=== PATIENT | female | born 1950 | race Caucasian/White ===

== ENCOUNTER → 2017-07-09 | Outpatient (CLI) | payer OTHER | LOC: FIMAGING 10:26 | PROVIDERS: ATTEND Family Medicine | DX: Z12.31 Encounter for screening mammogram for malignant neoplasm of breast (principal); Z80.3 Family history of malignant neoplasm of breast | CPT/HCPCS: G0202 ==

== ENCOUNTER 2017-11-16 04:35 | Emergency (ER) | payer OTHER, MEDICARE ==
--- NOTE | 2017-11-16 05:02 | CPEKG ---
Heart Rate: 84 RR Interval: 714 P-R Interval: 164 QRSD Interval: 144 QT Interval: 404 QTC Interval: 478 P [place]: 32 QRS [place]: 7 T Wave [place]: 37 EKG Severity - ABNORMAL ECG - EKG Impression: SINUS RHYTHM EKG Impression: RIGHT BUNDLE BRANCH BLOCK Electronically Signed By: Daysi Downs 17-Nov-2017 06:04:42
[2017-11-16] MEDS ORDERED: ASPIRIN 325 MG TAB PO ONE (05:08)
[2017-11-16 05:10] LABS: PLATELET COUNT 188 10^3/uL (150-400)
[2017-11-16] MEDS ORDERED: ASPIRIN 81 MG CHEWABLE TAB ONE (05:11)
--- NOTE | 2017-11-16 05:11 | EDPHY ---
H & P Stated Complaint: CP Source: Patient Exam Limitations: No limitations - Personal History Current Tetanus/Diphtheria Vaccine: Unsure Current Tetanus Diphtheria and Acellular Pertussis (TDAP): Unsure Tetanus Vaccine Date: unknown - Medical/Surgical History Hx Asthma: No Hx Chronic Respiratory Disease: No Hx Diabetes: No Hx Cardiac Disease: Yes Hx Renal Disease: No Hx Cirrhosis: No Hx Alcoholism: No Hx HIV/AIDS: No Hx Splenectomy or Spleen Trauma: No Other PMH: PMH- HLD, HYPOTHYROID. PSH- RUPTURED ECTOPIC, HYSTERECTOMY, APPY - Social History Smoking Status: Never smoked HPI/ROS: HPI The patient presents with chest pain and back pain which awoke her from sleep at 4:11 a.m. this morning. The patient describes the pain as sharp and clipping , starting in her left chest and radiating across her back. When she 1st experienced the pain she got up out of bed and drink some water. She noticed she was diaphoretic after this. She felt that her heart rate was fast about 120. She denies any shortness of breath, nausea or vomiting. She has no prior history of similar. She went to bed feeling well.. REVIEW OF SYSTEMS Constitutional: No fever, no chills. Eyes: No discharge. ENT: No sore throat. Cardiovascular: No chest pain, no palpitations. Respiratory: No cough, no shortness of breath. Gastrointestinal: No abdominal pain, no vomiting. Genitourinary: No hematuria. Musculoskeletal: No back pain. Skin: No rashes. Neurological: No headache. PMHx: Hypertension, hypothyroidism, history of right bundle-branch block with left anterior fascicular block, history of PACs Soc Hx: Lives at home with family PHYSICAL General Appearance: Alert, no distress Eyes: Pupils equal and round no pallor or injection ENT, Mouth: Mucous membranes moist Respiratory: There are no retractions, lungs are clear to auscultation Cardiovascular: Regular rate and rhythm Gastrointestinal: Abdomen is soft and non-tender, no masses, bowel sounds normal Neurological: A&O, moves all extremities Skin: Warm and dry, no rashes Musculoskeletal: Neck is supple non tender Extremities: symmetrical, full range of motion Psychiatric: Patient is oriented X 3, there is no agitation (Riguzzi,Daysi) Constitutional: Initial Vital Signs Temperature (C) 36.6 C 11/16/17 04:38 Heart Rate 77 02/05/18 04:38 Respiratory Rate 16 11/16/17 04:38 Blood Pressure 190/92 H 11/16/17 04:38 O2 Sat (%) 94 11/16/17 04:38 O2 Delivery Mode Room Air Allergies/Adverse Reactions: nitrofurantoin [From Macrobid] Allergy (Verified 05/11/16 02:01) nitrofurantoin macrocrystalline [From Macrobid] Allergy (Verified 05/11/16 02:01 ) BENZOPROXIDE Allergy (Uncoded 05/11/16 02:01) Home Medications: Medication Instructions Recorded Levothyroxine Sodium [Synthroid] 0.125 mcg PO 10/22/11 Amoxicillin/Clavulanate Pot 875 mg PO BID #20 tab 05/11/16 [Augmentin 875 MG TAB (*)] Hydrocodone/Acetaminophen [Vicodin 1 each PO Q4-6PRN PRN #20 tablet 05/11/16 5-300 mg Tablet] Lisinopril 05/11/16 Medical Decision Making - Diagnostics Imaging: I viewed and interpreted images myself - Diagnostics EKG Interpretation: EKG: Complete interpretation has been separately recorded in the [facility] archive. Summary impression: Sinus rhythm with right bundle-branch block and left anterior fascicular block. (Daysi Downs) Imaging Results: Imaging Impressions Chest X-Ray 11/16/17 05:05 Impression: No focal pneumonia. Chest x-ray two view shows no cardiomegaly, no effusion, no infiltrate, interpreted by me, radiology interpretation is pending. (Daysi Downs) ED Course/Re-evaluation: 730: The patient is signed out to me at change of shift. Per report, the patient is awaiting repeat troponin and EKG at 8:15 a.m.. Went discussed this plan with the patient. I answered all her questions. This time she had no chest pain. She is sitting comfortably in the bed. Her exam is unremarkable. 820: Sinus rhythm at 67. Right bundle branch block. This was present on her previous EKG. Her EKG is unchanged. Patient's repeat troponin was 0.017. I discussed the results with the patient. She is given warnings prior to leaving. She will return with worsening symptoms. (Melissa Ramirez) Differential Diagnosis: 67-year-old female with hypertension and hypothyroidism presents from home with chest and back pain which began about 1 hr prior to presentation. On arrival here, she is hypertensive, remainder of exam is unremarkable. Differential diagnosis includes ACS, aortic dissection, pneumonia, pneumothorax , pulmonary embolism, GERD, musculoskeletal pain. In the emergency department, patient received aspirin 324 mg. She had improvement in her pain. Chest x-ray was normal and EKG was unremarkable for any ischemic change, she does have a known right bundle branch block with left anterior fascicular block. Labs were unremarkable including troponin. Heart score calculated at 3. I have offered her admission to the hospital, however she declines. We will do a 4 hr serial troponin with repeat EKG. If this is normal she can be discharged to follow up with Cardiology. If this is abnormal, she should be admitted to the hospitalist service. She is in agreement with this plan. At 7:15 a.m., the case will be signed out to the oncoming provider Dr. Ramirez. (Daysi Downs) - Data Points Laboratory Results: Laboratory Results 11/16/17 04:55 11/16/17 04:55 11/16/17 11/16/17 11/16/17 08:14 04:55 04:55 WBC RBC Hgb Hct MCV MCH MCHC RDW Plt Count MPV Neut % (Auto) Lymph % (Auto) [place] % (Auto) Eos % (Auto) Baso % (Auto) Nucleat RBC Rel Count Absolute Neuts (auto) Absolute Lymphs (auto) Absolute Monos (auto) Absolute Eos (auto) Absolute Basos (auto) Absolute Nucleated RBC Immature Gran % Immature Gran # D-Dimer 0.32 ug/mLFEU ug/mLFEU (0.00-0.50) Sodium 147 mEq/L H mEq/L (135-145) Potassium 3.7 mEq/L mEq/L (3.5-5.2) Chloride 107 mEq/L mEq/L (97-110) Carbon Dioxide 23 mEq/l mEq/l (22-31) Anion Gap 17 mEq/L H mEq/L (8-16) BUN 13 mg/dL mg/dL (7-23) Creatinine 0.8 mg/dL mg/dL (0.6-1.0) Estimated GFR > 60 Glucose 120 mg/dL H mg/dL (70-100) Calcium 9.4 mg/dL mg/dL (8.5-10.4) Troponin I 0.017 ng/mL ng/mL < 0.012 ng/mL ng/mL (0.000-0.034) (0.000-0.034) TSH 2.240 uIU/mL uIU/mL (0.465-4.680) 11/16/17 04:55 WBC 6.70 10^3/uL 10^3/uL (3.80-9.50) RBC 5.61 10^6/uL H 10^6/uL (4.18-5.33) Hgb 17.0 g/dL H g/dL (12.6-16.3) Hct 49.1 % H % (38.0-47.0) MCV 87.5 fL fL (81.5-99.8) MCH 30.3 pg pg (27.9-34.1) MCHC 34.6 g/dL g/dL (32.4-36.7) RDW 13.0 % % (11.5-15.2) Plt Count 188 10^3/uL 10^3/uL (150-400) MPV 9.8 fL fL (8.7-11.7) Neut % (Auto) 46.2 % % (39.3-74.2) Lymph % (Auto) 43.0 % % (15.0-45.0) [place] % (Auto) 6.1 % % (4.5-13.0) Eos % (Auto) 3.3 % % (0.6-7.6) Baso % (Auto) 1.0 % % (0.3-1.7) Nucleat RBC Rel Count 0.0 % % (0.0-0.2) Absolute Neuts (auto) 3.09 10^3/uL 10^3/uL (1.70-6.50) Absolute Lymphs (auto) 2.88 10^3/uL 10^3/uL (1.00-3.00) Absolute Monos (auto) 0.41 10^3/uL 10^3/uL (0.30-0.80) Absolute Eos (auto) 0.22 10^3/uL 10^3/uL (0.03-0.40) Absolute Basos (auto) 0.07 10^3/uL 10^3/uL (0.02-0.10) Absolute Nucleated RBC 0.00 10^3/uL 10^3/uL (0-0.01) Immature Gran % 0.4 % % (0.0-1.1) Immature Gran # 0.03 10^3/uL 10^3/uL (0.00-0.10) D-Dimer Sodium Potassium Chloride Carbon Dioxide Anion Gap BUN Creatinine Estimated GFR Glucose Calcium Troponin I TSH Medications Given: Discontinued Medications Aspirin (Aspirin) 325 mg PO EDNOW ONE Stop: 11/16/17 05:09 Last Admin: 11/16/17 05:12 Dose: 325 mg Departure - Departure Disposition: Home, Routine, Self-Care Clinical Impression: Chest pain Qualifiers: Chest pain type: other chest pain Qualified Code(s): R07.89 - Other chest pain ; R07.8 - Other chest pain Condition: Good Instructions: Chest Pain (ED) Additional Instructions: Please follow-up with your online tutor in the next 1-2 days. You should return to the emergency department if your worse in any way. Referrals: Roberto Hernández MD [Primary Care Provider] - As per Instructions José Manuel Lamb MD [Medical Doctor] - As per Instructions
[2017-11-16 08:03] VITALS: O2SAT 94
--- NOTE | 2017-11-16 08:22 | CPEKG ---
Heart Rate: 67 RR Interval: 896 P-R Interval: 153 QRSD Interval: 134 QT Interval: 440 QTC Interval: 465 P [place]: 23 QRS [place]: 1 T Wave [place]: 37 EKG Severity - ABNORMAL ECG - EKG Impression: SINUS RHYTHM EKG Impression: RIGHT BUNDLE BRANCH BLOCK Electronically Signed By: Esteban William 18-Nov-2017 17:29:21
[2017-11-16 09:11] VITALS: BP 125/70; PULSE 68; RESP 18; TEMP 98.2
== END 2017-11-16 09:14 | disposition home or self-care (01) ==
DX: R07.89 Other chest pain (principal); I10 Essential (primary) hypertension

== ENCOUNTER → 2018-10-15 | Outpatient (CLI) | payer OTHER, MEDICARE | LOC: FIMAGING 11:21 | PROVIDERS: ATTEND Family Medicine | DX: Z12.31 Encounter for screening mammogram for malignant neoplasm of breast (principal); Z80.3 Family history of malignant neoplasm of breast ==